=== PATIENT | female | born 1990 | race African-American/Black ===

== ENCOUNTER → 2018-10-07 | Outpatient (REF) | payer OTHER ==
[2018-10-07 13:26] LABS: APPEARANCE, URINE CLEAR (CLEAR); BACTERIA, URINE AUTO NEGATIVE (NEGATIVE); BILIRUBIN, URINE AUTO NEGATIVE (NEGATIVE); BLOOD, URINE BLOOD NEGATIVE (NEGATIVE); COLOR, URINE YELLOW (YELLOW); GLUCOSE, URINE (UA) AUTO NEGATIVE (NEGATIVE); KETONE, URINE AUTO NEGATIVE (NEGATIVE); LEUKOCYTE ESTERASE, URINE AUTO NEGATIVE (NEGATIVE); NITRITE, URINE AUTO NEGATIVE (NEGATIVE); PROTEIN, URINE AUTO NEGATIVE (NEGATIVE); RBC, URINE AUTO 0 /HPF (0-3); SPECIFIC GRAVITY URINE AUTO 1.023 (1.002-1.035); SQUAMOUS EPITHELIAL CELL UR AU 0 /HPF (0-6); WBC, URINE AUTO 0 /HPF (0-3)
== END ==
LOC: M LAB REF 12:23
PROVIDERS: ATTEND Surgery
DX: R10.9 Unspecified abdominal pain (principal); M54.5 Low back pain

== ENCOUNTER 2018-11-15 10:42 | Inpatient (IN) | payer OTHER ==
[~2018-11-15] VITALS: Ht 180.3 cm; Wt 98.6 kg
[2018-11-15] MEDS: ENOXAPARIN 40 MG/0.4 ML SYRINGE (J1650) SC SCH (09:00)
[2018-11-15] MEDS: hydroCHLOROthiazide 25 MG TAB PO SCH (09:00)
[2018-11-15] MEDS: ASPIRIN 81 MG ENTERIC TAB PO SCH (09:00)
[2018-11-15] MEDS: LOSARTAN 50 MG TAB PO SCH (09:00)
[2018-11-15] MEDS ORDERED: OMEP40CA2 PO (10:52)
[2018-11-15] MEDS ORDERED: ATOR40TA75 PO (10:52)
[2018-11-15] MEDS ORDERED: METF-839 PO (10:52)
[2018-11-15] MEDS ORDERED: LOSA100T50 PO (10:52)
[2018-11-15] MEDS ORDERED: ASPI81TA85 PO (10:52)
[2018-11-15] MEDS ORDERED: HYDR12.55 PO (10:52)
--- NOTE | 2018-11-15 11:34 | REP ---
Clinical: Acute cerebrovascular accident . Comparison: None of . Findings: The ventricles, sulci, and cisterns are normal in position and appearance. Orellana-white differentiation is maintained. No acute intracranial hemorrhage, mass/mass effect, pathology or trauma/injury. No evidence for acute infarction. No extra-axial fluid collection. Calvarium is intact. Paranasal sinuses and mastoid air cells are clear. Impression: No evidence for acute intracranial pathology or trauma/injury. Electronically Signed by Barry Peña MD 11/15/2018 11:26 A
--- NOTE | 2018-11-15 11:39 | REP ---
Clinical: Acute cerebrovascular accident . Comparison: None . Technique: PA. Findings: The mediastinum and cardiac silhouette are normal. The lung rose are clear and without acute consolidation, effusion, or pneumothorax. The skeletal structures are intact and normal. Impression: 1. No acute cardiopulmonary process. Electronically Signed by Barry Peña MD 11/15/2018 11:31 A
[2018-11-15 11:55] LABS: BASO % 0.8 % (0.0-1.0); EOS # 0.2 10^3/uL (0.0-0.50); EOS % 4.2 % (0.0-3.0); HEMATOCRIT 41.8 % (42.0-52.0); LYMPH # 1.6 10^3/uL (1.5-6.5); MEAN CORPUSCULAR HEMOGLOBIN 34.7 pg (27.0-33.0); MEAN CORPUSCULAR HGB CONC 35.9 g/dl (32.0-36.5); MEAN CORPUSCULAR VOLUME 96.8 fl (80.0-96.0); MONO # 0.3 10^3/uL (0.0-0.8); MONO % 8.8 % (0.0-5.0); NEUTROPHILS # 1.5 10^3/uL (1.8-7.7); NEUTROPHILS % 41.2 % (36.0-66.0); PLATELET COUNT, AUTOMATED 239 10^3/uL (150-450); RED BLOOD COUNT 4.32 10^6/uL (4.30-6.10); WHITE BLOOD COUNT 3.5 10^3/uL (4.0-10.0)
[2018-11-15 12:06] LABS: INR 1.1; PROTHROMBIN TIME 13.9 SECONDS (11.8-14.0)
[2018-11-15 12:07] LABS: PARTIAL THROMBOPLASTIN TIME 34.5 SECONDS (25.0-38.4)
[2018-11-15 12:24] LABS: BLOOD UREA NITROGEN 12 MG/DL (7-18); CALCIUM LEVEL 9.3 MG/DL (8.5-10.1); CARBON DIOXIDE LEVEL 26 MEQ/L (21-32); CHLORIDE LEVEL 108 MEQ/L (98-107); CK-MB VALUE MASS 1.6 NG/ML (<3.6); CPK CREATINE PHOSPHOKINASE 341 U/L (39-308); GLOMERULAR FILTRATION RATE > 60.0 (>60); GLUCOSE, FASTING 113 MG/DL (70-100); MB/CK RELATIVE INDEX 0.47 (< OR =4); SODIUM LEVEL 140 MEQ/L (136-145); TROPONIN I < 0.02 NG/ML (< 0.10)
[2018-11-15] MEDS ORDERED: KETOROLAC 30 MG/ML VIAL (J1885) IV ONE (12:30)
[2018-11-15] MEDS ORDERED: HYDR25TAB PO (13:46)
[2018-11-15] MEDS ORDERED: GLUCAGON FOR INJ 1 MG VIAL (J1610) SC PRN (14:00)
[2018-11-15] MEDS ORDERED: DEXTROSE 50% 50 ML SYRINGE IV PRN (14:00)
[2018-11-15] MEDS ORDERED: GLUCOSE 4 GM CHEW TABLET PO PRN (14:00)
--- NOTE | 2018-11-15 14:24 | HPEPDOC ---
General Date of Admission 11/15/2018 Date of Service: Nov 15, 2018 Attending Physician: FLOYD VEGAS MD Chief Complaint The patient is a 27-year-old male admitted with a reason for visit of Right Side Numbness. Source: Patient, RN/MD Exam Limitations: No limitations Timing/Duration: Day(s) Severity: Moderate History of Present Illness Patient is a 27-year-old male, currently incarcerated brought to the emergency room on account of two day onset right-sided weakness and numbness. Patient has a past medical history significant for hypertension, hyperlipidemia, type 2 diabetes mellitus, nicotine dependence. CT of brain completed in the emergency room was negative for acute intracranial process. Chest x-ray was negative for acute cardiopulmonary process. Patient describes pain as a sharp pain, initially starting from right lower back with radiation to neck and lower extremities. Pain is constant, rated 10 out of 10, worse with lumbar flexion, hip flexion, lumbar rotation, also unable to lie supine due to pain. Patient denies any trauma prior to onset of symptoms.. He also denies any prior occurrence of same.. He denies chest pain, shortness of breath, other weakness, chills, fever. A call was placed by the ED physician to neurology specialist, to Dr. Baez who recommended. MRI of cervical spine and brain. CT brain findings were discussed with patient at time of assessment. Home Medications Scheduled Aspirin (Aspir 81) 81 Mg Tablet.dr, 81 MG PO DAILY, (Reported) Atorvastatin Calcium (Atorvastatin Calcium) 40 Mg Tablet, 40 MG PO QHS, (Reported) Hydrochlorothiazide (Hydrochlorothiazide) 25 Mg Tablet, 25 MG PO DAILY, (Reported) Losartan Potassium (Losartan Potassium) 100 Mg Tablet, 100 MG PO DAILY, (Reported) Metformin HCl (Metformin HCl) 500 Mg Tablet, 500 MG PO BID, (Reported) Omeprazole (Omeprazole) 40 Mg Capsule.dr, 40 MG PO DAILY, (Reported) Allergies Coded Allergies: lisinopril (Verified Allergy, Severe, lips swelling, 11/15/18) Past Medical History Medical History Hypertension Diabetes mellitus type 2 Nicotine dependence Hyperlipidemia Surgical History Denies Family History Father: Hypertension, diabetes mellitus Mother: Hypertension Social History Patient smokes one to 2 cigarettes a day, denies alcohol or polysubstance abuse A-FIB/CHADSVASC A-FIB History Current/History of A-Fib/PAF?: No Current PO Anticoag Therapy: No Review of Systems Other systems A 10 point pertinent review of systems was completed, negative except as stated in the history of presenting illness. Physical Examination Other physical findings GENERAL: NAD SKIN : Warm, dry intact HEENT: Atraumatic, normocephalic, PERRL, moist mucous membrane CARDIOVASCULAR: Regular rate and rhythm, S1S2, no JVD, no edema, distal pulses + and palpable RESP: CTAB, no accessory muscle use noted ABDOMEN: BS+ non distended non tender MS: no joint deformities NEURO: Alert and oriented x 3, CN2-12 grossly intact PSYCH: no anxiety or agitation, appropriate mood and affect. Vital Signs Vital Signs Date Time Temp Pulse Resp B/P (MAP) Pulse Ox O2 Delivery O2 Flow Rate FiO2 11/15/18 11:05 Room Air 11/15/18 11:05 11/15/18 10:42 97.6 57 16 98 Laboratory Data Labs 24H Laboratory Tests 2 11/15/18 11:31: Immature Granulocyte % (Auto) 0.0, White Blood Count 3.5L, Red Blood Count 4.32, Hemoglobin 15.0, Hematocrit 41.8L, Mean Corpuscular Volume 96.8H, Mean Corpuscular Hemoglobin 34.7H, Mean Corpuscular Hemoglobin Concent 35.9, Red Cell Distribution Width 11.9, Platelet Count 239, Neutrophils (%) (Auto) 41.2, Lymphocytes (%) (Auto) 45.0H, Monocytes (%) (Auto) 8.8H, Eosinophils (%) (Auto) 4.2H, Basophils (%) (Auto) 0.8, Neutrophils # (Auto) 1.5L, Lymphocytes # (Auto) 1.6, Monocytes # (Auto) 0.3, Eosinophils # (Auto) 0.2, Basophils # (Auto) 0.0, Nucleated Red Blood Cells % (auto) 0.0, Prothrombin Time 13.9, Prothromb Time International Ratio 1.10, Activated Partial Thromboplast Time 34.5, Anion Gap 6L, Glomerular Filtration Rate > 60.0, Blood Urea Nitrogen 12, Creatinine 1.00, Sodium Level 140, Potassium Level 4.0, Chloride Level 108H, Carbon Dioxide Level 26, Calcium Level 9.3, Total Creatine Kinase 341H, Creatine Kinase MB 1.6, Cre atine Kinase MB Relative Index 0.47, Troponin I < 0.02 CBC/BMP Laboratory Tests 11/15/18 11:31 Red Blood Count 4.32, Mean Corpuscular Volume 96.8 H, Mean Corpuscular Hemoglobin 34.7 H, Mean Corpuscular Hemoglobin Concent 35.9, Red Cell Distribution Width 11.9, Neutrophils (%) (Auto) 41.2, Lymphocytes (%) (Auto) 45.0 H, Monocytes (%) (Auto) 8.8 H, Eosinophils (%) (Auto) 4.2 H, Basophils (%) (Auto) 0.8, Neutrophils # (Auto) 1.5 L, Lymphocytes # (Auto) 1.6, Monocytes # (Auto) 0.3, Eosinophils # (Auto) 0.2, Basophils # (Auto) 0.0, Calcium Level 9.3, Total Creatine Kinase 341 H Assessment/Plan Right-sided paresthesia and pain -CT brain has ruled out acute hemorrhagic intracranial process -MRI brain and cervical spine pending -. Case has been discussed with neurologist -Based on MRI findings, will be consulted for further input and recommendations -In the interim, continue CVA risk factor modifications. Blood pressure control, statin, aspirin Hypertension -Continue hydrochlorothiazide and losartan -Blood pressure monitoring per unit protocol Type 2 diabetes mellitus -Caloric controlled diabetic diet -Finger stick checks prior to meals and at bedtime -Coverage with insulin per sliding scale protocol -Hold in all oral glycemic agents at this time due to potential testings and risk of dye exposure Nicotine dependence -Cessation has been counseled Hyperlipidemia -Statin therapy will be continued DVT prophylaxis- -Lovenox subcutaneous 40 mg daily Plan / VTE VTE Prophylaxis Ordered?: Yes KADEN HELTON Nov 15, 2018 14:24
--- NOTE | 2018-11-15 15:11 | REP ---
MR angiography the brain without contrast: History: CVA. Technique: 3-D [id number] MR angiography of the brain is acquired in the usual fashion and maximal intensity projection images were generated in rotational format about the vertical and horizontal axes. In addition, source axial T1-weighted images are viewed in cine mode. MR angiographic findings: The distal vertebral arteries are patent , right larger than left . Basilar artery is a little tortuous but widely patent. The posterior cerebral and superior cerebellar vessels are normal and symmetric. The distal internal carotid arteries are unremarkable. Anterior and middle cerebral arteries appear intact. There is no visible boyd aneurysm or arteriovenous malformation. Impression: Unremarkable MR angiography the brain. Electronically Signed by Toby uHnter MD 11/15/2018 03:02 P
[2018-11-15 15:17] VITALS: BP 156/87
--- NOTE | 2018-11-15 15:17 | REP ---
MRI brain without contrast: History: CVA . Comparison study: Comparison is made with today's brain CT study November 15, 2018. Technique: Axial and sagittal imaging planes are utilized for T1 and T2-weighted scans. Sequences include spin-echo, fast spin echo, FLAIR, and diffusion weighted sequences. MRI findings: There is a small dural calcification visible in the right parietal region corresponding to the CT. This measures 1.1 cm in greatest diameter. Is attached to the inner table and is compatible with a small osteoma. Craniocervical junction and upper cervical cord are normal in appearance. There is no MR evidence of significant paranasal sinus disease. No intraorbital abnormality is seen. The lateral, third, and fourth ventricles are normal in size and position. Orellana-white differentiation pattern is intact above and below the tentorium. There is no evidence of intracranial hemorrhage. No mass, infarction, extra-axial fluid collection or midline shift is seen. No abnormal white matter lesion is seen. 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 Otherwise negative noncontrast brain MRI study. Electronically Signed by Toby Hunter MD 11/15/2018 04:22 P
--- NOTE | 2018-11-15 15:20 | REP ---
MRI cervical spine without contrast: History: Neck pain. No comparison cervical spine imaging. Technique: Sagittal and axial T1 and T2-weighted scans are acquired in the usual fashion with and without fat saturation. Sequences include spin echo, turbo spin-echo, and STIR imaging sequences. MRI findings: There is straightening and slight reversal of the normal cervical lordosis. Cortical and medullary bone signal intensity are normal. Vertebral body heights are preserved. Alignment is otherwise normal. Craniocervical junction is unremarkable. The cervical cord is normal in coarse, caliber and signal intensity on T1 and T2-weighted scans. There is mild central disc bulging at C2-3. No other finding at this level. At C3-4, there is a left posterior focal disc protrusion indenting the ventral margin of the thecal sac. On axial images this appears to contact the ventral margin of the cord. There is no evidence of cord compression. No neural foraminal compromise is seen. At C4-5, there is mild broad-based disc bulging. There is uncovertebral spurring on the right encroaching on the right neural foramen. At C5-6, there is disc space narrowing and posterior bulging. Minimal uncovertebral spurring is present bilaterally at C5-6. At C6-7 and C7-T1, there is no disc abnormality. Canal size is borderline at C4-5 and C5-6. AP diameter of the thecal sac in the midline at these levels is 10 mm. Impression: Degenerative disc disease noted with a left posterior disc protrusion at C3-4, right-sided uncovertebral spurring at C4-5, mild bilateral uncovertebral spurring at C5-6 with diffuse disc bulging. Borderline canal size at C4-5 and C5-6. Electronically Signed by Toby Hunter MD 11/15/2018 04:23 P
--- NOTE | 2018-11-15 15:41 | ECGEPIP ---
[facility] - ED Test Date: 2018-11-15 Pat Name: KESHIA HAND Department: Room: - Gender: Male Mask Inspector: abiel : [id number] Requested By: MICHAEL Naranjo Order Number: [id number] Reading MD: Griselda Mcleod Measurements Intervals [place] Rate: 53 P: 49 OK: 167 QRS: 3 QRSD: 89 T: QT: 407 QTc: 385 Interpretive Statements SINUS BRADYCARDIA MODERATE T-WAVE ABNORMALITY, CONSIDER ANTEROLATERAL ISCHEMIA, CLINICAL CORRELATION No prior Electronically Signed on 11-15-2018 15:40:52 EDT by Griselda Mcleod
[2018-11-15] MEDS: ACETAMINOPHEN TAB 650MG DOSE (2X325MG) PO PRN (17:47)
[2018-11-15] MEDS: HumaLOG INSULIN (NovoLOG) PER UNIT SC SCH ×2 (17:48→20:35)
[2018-11-15 18:00] VITALS: BP 143/96
[2018-11-15] MEDS: ATORVASTATIN 20 MG TAB PO SCH (21:06)
[2018-11-15 22:00] VITALS: BP 147/85
[2018-11-15] MEDS ORDERED: GABAPENTIN 100 MG CAP PO ONE (23:15)
[2018-11-16 02:00] VITALS: BP 149/68
[2018-11-16 06:00] VITALS: BP 148/71
[2018-11-16 06:38] LABS: HEMATOCRIT 41.3 % (42.0-52.0); HEMOGLOBIN 14.6 g/dl (13.5-17.5); MEAN CORPUSCULAR HEMOGLOBIN 33.3 pg (27.0-33.0); MEAN CORPUSCULAR HGB CONC 35.4 g/dl (32.0-36.5); MEAN CORPUSCULAR VOLUME 94.1 fl (80.0-96.0); PLATELET COUNT, AUTOMATED 232 10^3/uL (150-450); RED BLOOD COUNT 4.39 10^6/uL (4.30-6.10); WHITE BLOOD COUNT 5.2 10^3/uL (4.0-10.0)
[2018-11-16 07:09] LABS: BLOOD UREA NITROGEN 16 MG/DL (7-18); CALCIUM LEVEL 8.9 MG/DL (8.5-10.1); CARBON DIOXIDE LEVEL 26 MEQ/L (21-32); CHLORIDE LEVEL 106 MEQ/L (98-107); CREATININE FOR GFR 0.97 MG/DL (0.70-1.30); GLOMERULAR FILTRATION RATE > 60.0 (>60); GLUCOSE, FASTING 121 MG/DL (70-100); MAGNESIUM LEVEL 2.2 MG/DL (1.8-2.4); POTASSIUM SERUM 3.7 MEQ/L (3.5-5.1); SODIUM LEVEL 139 MEQ/L (136-145); THYROID STIMULATING HORMONE 0.334 uIU/ML (0.358-3.740)
--- NOTE | 2018-11-16 07:31 | REP ---
Clinical: Right lower extremity pain . Technique: Orellana scale and color Doppler evaluation using linear high frequency transducer. Findings: Ultrasound examination of the right lower extremity deep venous structures from the common femoral vein to the popliteal vein demonstrates normal compressibility flow and wave patterns in response to respiration and augmentation. There is no evidence for deep venous thrombosis. Impression: No evidence for deep venous thrombosis. Electronically Signed by Barry Peña MD 11/16/2018 07:23 A
[2018-11-16] MEDS: ENOXAPARIN 40 MG/0.4 ML SYRINGE (J1650) SC SCH (08:23)
[2018-11-16] MEDS: LOSARTAN 50 MG TAB PO SCH (08:23)
[2018-11-16] MEDS: hydroCHLOROthiazide 25 MG TAB PO SCH (08:23)
[2018-11-16] MEDS: ASPIRIN 81 MG ENTERIC TAB PO SCH (08:23)
[2018-11-16] MEDS: HumaLOG INSULIN (NovoLOG) PER UNIT SC SCH ×4 (08:24→21:00)
[2018-11-16] MEDS ORDERED: GABAPENTIN 100 MG CAP PO SCH (09:00)
--- NOTE | 2018-11-16 12:22 | REP ---
MRI LUMBAR SPINE WITHOUT CONTRAST: HISTORY: Back pain. Left calf numbness. No known injury. TECHNIQUE: Sagittal and axial T1- and T2-weighted scans are acquired in the usual fashion with and without fat saturation. Sequences include spin echo, turbo spin echo, and STIR imaging sequences. MRI FINDINGS: There is partial sacralization of the L5 vertebral body. Vertebral body heights are preserved. Alignment is normal. Cortical and medullary bone signal intensity are normal. There is a Schmorl's node in the superior endplate of the L5 vertebral body on the right. There is degenerative disc disease at L4-5. There is a large right posterior focal disc protrusion producing moderate thecal sac compression and right fifth lumbar root compression. There is diffuse moderate bulging of the remainder of the disc margin. The left neural foramen shows a encroachment as well. There is no evidence of spondylolysis or spondylolisthesis. Mild facet hypertrophy is present. Thecal sac measures 6 mm AP dimension in the midline. At L5-S1, there is no disc abnormality. At L3-4, L2-3, and L1-L2, there is no significant disc abnormality. No central canal stenosis or neural foraminal narrowing is seen. Conus medullaris is normal in position and appearance at the T12-L1. IMPRESSION: Moderate sized right posterior L4-5 disc herniation with a moderate thecal sac compression. Bilateral neural foraminal narrowing at L4-5. Facet hypertrophy is present of L4-5 as well. There is partial sacralization of the L5 vertebral body. Electronically Signed by Toby Hunter MD 11/16/2018 04:33 P
[2018-11-16] MEDS: ACETAMINOPHEN TAB 650MG DOSE (2X325MG) PO PRN (12:29)
--- NOTE | 2018-11-16 13:04 | IPNPDOC ---
Text Note Date of Service The patient was seen on 11/16/18. NOTE Subjective: Patient is a 27-year-old -[place] male from [place] with a PMHx of HTN, DLP, DM2, Nicotine dependence , presented to the emergency room with complaints of 2 day history of right-sided weakness and numbness of his right side. It is unclear whether the patient had complete weakness of his right upper and lower extremities based on documentation. Currently, patient is expressing weakness of his right lower extremity associated with loss of sensation. Patient denies any trauma. He reports that it occurred spontaneously. Patient was seen and examined at the bedside. Currently, he denies chest pain, shortness of breath or palpitations. Denies nausea, vomiting, abdominal pain. Patient, diarrhea, or urinary discomfort. Patient does not experience any bowel or bladder incontinence. Objective: Vitals (See below) General: Lying in bed, no acute distress, comfortable, AAOx3 HEENT: NC, AT CVS: RRR, +S1S2 Lungs: Fair air entry b/l, -w/r/r Abdomen: Soft, ND, NT Extremities: - Edema, - Calf tenderness Neuro: 3-4/5 strength at RLE, LLE with 5/5 strength, Bilateral UE with 5/5 strength Imaging: - CT head 11/15: No evidence for acute intracranial pathology or trauma/injury. - CXR 11/15: 1. No acute cardiopulmonary process. - MRI C Spine 11/15: Degenerative disc disease noted with a left posterior disc protrusion at C3-4, right-sided uncovertebral spurring at C4-5, mild bilateral uncovertebral spurring at C5-6 with diffuse disc bulging. Borderline canal size at C4-5 and C5-6. 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 Otherwise negative noncontrast brain MRI study. - MRA Brain 11/15: Unremarkable MR angiography the brain. - Duplex Carotid US 11/15: No evidence for deep venous thrombosis. - MRI LS Spine 11/16: Moderate sized right posterior L4-5 disc herniation with a moderate thecal sac compression. Bilateral neural foraminal narrowing at L4-5. Facet hypertrophy is present of L4-5 as well. There is partial sacralization of the L5 vertebral body. Assessment and plan: Weakness / Numbness of R LE - possibly 2/2 herniated disc, unlikely 2/2 CVA - Patient denies any trauma - Imaging appreciated; documented above - c/w Gabapentin - Neurology and Orthopedic surgery on consultation; appreciate their input Suppressed TSH - possibly 2/2 hyperthyroidism - Will repeat TSH, Free T4 and Total T3 HTN - BP moderately controlled - c/w Losartan and HCTZ DM2 - c/w ISS DLP - c/w Atorvastatin Nicotine dependence - Advised smoking cessation - c/w Nicotine patch GERD - will resume Omeprazole DVT prophylaxis - c/w Lovenox VS,Fishbone, I+O VS, Fishbone, I+O Laboratory Tests 11/16/18 05:22 Red Blood Count 4.39, Mean Corpuscular Volume 94.1, Mean Corpuscular Hemoglobin 33.3 H, Mean Corpuscular Hemoglobin Concent 35.4, Red Cell Distribution Width 11.8, Calcium Level 8.9 Vital Signs Date Time Temp Pulse Resp B/P (MAP) Pulse Ox O2 Delivery O2 Flow Rate FiO2 11/16/18 10:00 97.9 62 18 98 11/16/18 08:23 148/71 11/15/18 11:05 Room Air I&O- Last 24 Hours up to 6 AM 11/16/18 06:00 Intake Total 1260 ml Output Total 400 ml Balance 860 ml MYRA KENDALL MD Nov 16, 2018 13:04
[2018-11-16 14:00] VITALS: BP 140/89
[2018-11-16] MEDS: traMADol 50 MG TAB PO PRN (14:04)
[2018-11-16] MEDS: OMEPRAZOLE 20 MG CAP PO SCH (14:04)
--- NOTE | 2018-11-16 14:44 | REP ---
Clinical: Lumbar pain Technique: AP, lateral, bilateral oblique, and coned-down views. Findings: Alignment and lordosis is maintained. There appears to be partial sacralization of the L5 vertebral body with associated loss of disc space. The remaining vertebral bodies including transverse process and spinous processes are intact and normal. There is no evidence for acute fracture / compression injury or subluxation. No evidence for spondylolysis or spondylolisthesis. Impression: Partial sacralization of the L5 vertebral body. Otherwise normal appearing lumbar series. Electronically Signed by Barry Peña MD 11/16/2018 02:35 P
--- NOTE | 2018-11-16 14:58 | CR ---
DATE OF CONSULTATION: 11/16/2018 REASON FOR CONSULTATION: Right back pain and right leg pain. HISTORY OF PRESENT ILLNESS: He is a 27-year-old male who has had three weeks of low back pain and then yesterday he got up out of bed in the morning, described he had a searing, burning pain down the right leg emanating from the right side of his low. Associated with this it was difficult to walk, he complained that his leg felt weak to him and buckling, so he presented to the emergency room where he was admitted by the hospitalist service and multiple radiographic studies have been performed and most recently a lumbosacral spine MR scan shows a large herniated disc at L4-5. He has not been having troubles with his bowel or bladder function. He is requiring a walker to ambulate. He does not complain of pain in his upper extremities, only tingling and numbness down the right leg, not the left leg. PAST MEDICAL HISTORY: He has a past medical history of high blood pressure, hypercholesterolemia, and [id number]-atrysycna diabetes, and gastric reflux. MEDICATIONS: His medications are aspirin, atorvastatin, hydrochlorothiazide, losartan, metformin and omeprazole. ALLERGIES: 1. LISINOPRIL. PAST SURGICAL HISTORY: None. SOCIAL HISTORY: He is presently incarcerated up at [facility]. He is here with two guards. He does smoke cigarettes. He does not drink alcohol excessively. FAMILY HISTORY: He has a family history of high blood pressure and diabetes in his family. He is from the [facility] originally. PHYSICAL EXAMINATION: On clinical examination, 27-year-old male lying in his bed. He is able to roll supine and on his side for me, but with quite a bit of discomfort and grimacing in pain. His blood pressure was 148/71, temperature 97.9, pulse 62, respirations 18, oxygen saturation 98%. Upper extremity examinations were benign. He could elevate up overhead. He had no complaints of sores or pains or troubles involving his upper extremities. The lumbar spine was tender diffusely across the base of the lumbar spine then off into the right buttock area. He had decreased sensation to light touch when I palpate down along the lateral aspect of the lower leg. It was intact over the anterior quadriceps area and along the medial side of his leg but clearly the lateral side of the lower leg was numb and tingly, extending down to the dorsum of the right foot and he had some numbness on the bottom of his foot. There was some slight weakness when he tries to marcio and dorsiflex that right ankle, negative Babinski, but reflexes seem to be diminished at the right quad versus the left quad, but it seemed to be intact at both ankles. No clonus was noted. He could do a straight-leg raise, but it was very painful if I elevated his leg up with his knee extending, more than about 30 degrees off the bed. It did not cause that trouble when I elevated the left leg. His imaging studies were all reviewed including head CT, chest x-ray, which showed no acute troubles. Cervical spine MRI scan had some diffuse cervical spondylosis with some left posterior focal disc protrusion at 3-4, more broad based at 4-5 and some narrowing at 5-6 with some spurring of the uncovertebral joints. There is some borderline narrowing across 4-5 and 5-6. The brain MRI and vascular ultrasounds were unremarkable. Lumbar spine MRI scan showed a sizable L4-5 disc off to the right side, quite concordant with his symptoms. IMPRESSION: Acute herniated L4-5 disc with some weakness in his leg and tingling and numbness, quite a bit of pain, obvious quite a bit of discomfort. He may be a candidate for surgical disc excision. Other options would be epidural steroid injections and physical therapy. He needs plain film x-rays of his back in case a surgery is decided upon. I told him that I did discuss this case with my partner, my spine surgeon, Dr. Hill, who will be evaluating him to discuss the options once again with him and in the meantime we will order the spine film x-rays.
[2018-11-16 18:00] VITALS: BP 130/76
[2018-11-16 18:01] LABS: FREE T4 0.94 NG/DL (0.76-1.46); THYROID STIMULATING HORMONE 0.616 uIU/ML (0.358-3.740)
[2018-11-16 18:03] LABS: TOTAL T3 91.1 NG/DL (60.0-181.0)
[2018-11-16] MEDS: GABAPENTIN 300 MG CAP PO SCH (21:18)
[2018-11-16] MEDS: ATORVASTATIN 20 MG TAB PO SCH (21:18)
[2018-11-16 22:00] VITALS: BP 146/88
[2018-11-17 06:00] VITALS: BP 138/76
[2018-11-17 06:22] LABS: HEMATOCRIT 44.4 % (42.0-52.0); HEMOGLOBIN 15.9 g/dl (13.5-17.5); MEAN CORPUSCULAR HEMOGLOBIN 34.3 pg (27.0-33.0); MEAN CORPUSCULAR HGB CONC 35.8 g/dl (32.0-36.5); MEAN CORPUSCULAR VOLUME 95.7 fl (80.0-96.0); PLATELET COUNT, AUTOMATED 232 10^3/uL (150-450); RED BLOOD COUNT 4.64 10^6/uL (4.30-6.10)
[2018-11-17 06:45] LABS: BLOOD UREA NITROGEN 15 MG/DL (7-18); CALCIUM LEVEL 9.1 MG/DL (8.5-10.1); CARBON DIOXIDE LEVEL 27 MEQ/L (21-32); CHLORIDE LEVEL 103 MEQ/L (98-107); CREATININE FOR GFR 0.98 MG/DL (0.70-1.30); GLOMERULAR FILTRATION RATE > 60.0 (>60); GLUCOSE, FASTING 104 MG/DL (70-100); MAGNESIUM LEVEL 2.1 MG/DL (1.8-2.4); POTASSIUM SERUM 3.6 MEQ/L (3.5-5.1); SODIUM LEVEL 138 MEQ/L (136-145)
--- NOTE | 2018-11-17 06:49 | CR ---
DATE OF CONSULTATION: 11/16/2018 REFERRING PHYSICIAN: Dr. Marv Kelsey REASON FOR CONSULTATION: Right leg numbness, weakness and back pain. HISTORY OF PRESENT ILLNESS: Beverly Niño is a 27-year-old male who is incarcerated and states that he had off and back pain for the last one year, but it got worse this past weekend on Wednesday. His pain got worse to 10 out of 10 in intensity and was radiating down his right leg and he felt numbness and tingling of right leg below his right anne and top of his foot. He also felt weakness of his left foot. He would feel more pain in his back whenever he was bending his neck. He also felt more pain in his lower back if he raised his arms up. He denies any pain with his left leg. He denies any numbness, weakness of his arms. He denies any headaches. He denies seizures, dysphagia, dysarthria, diplopia or urinary incontinence. DIAGNOSTICS STUDIES: His MRI scan of brain was unremarkable. MRA brain was unremarkable. MRI cervical spine showed mild multilevel cervical spondylosis. MRI scan lumbar spine showed disc herniation at L4-L5 level with right foraminal stenosis and severe compression of right L3 nerve root. PAST MEDICAL HISTORY: Diabetes. Hypertension. Dyslipidemia. Acid reflux. Nicotine dependence. HOME MEDICATIONS: - aspirin 81 mg p.o. daily - Lipitor 40 mg p.o. daily - hydrochlorothiazide 25 mg in morning - losartan 100 mg p.o. daily - metformin 500 mg p.o. b.i.d. - Prilosec 40 mg p.o. daily FAMILY HISTORY: Significant for diabetes and hypertension. SOCIAL HISTORY: He smokes a couple of cigarettes a day. He denies alcohol or illicit drugs. REVIEW OF SYSTEMS: All systems are reviewed and found to be noncontributory except as mentioned in the history present illness. PHYSICAL EXAMINATION: Temperature 97, pulse 59, respiratory rate 16, blood pressure 140/89, 99% saturation on room air. Heart: Regular rate and rhythm. Lungs: Clear to auscultation. Abdomen: Soft, nontender, nondistended. No pedal edema. No musculoskeletal abnormalities. No rash. No signs of meningeal irritation. The patient is awake, alert, oriented to place, person and time. Normal speech comprehension and repetition. Extraocular muscles are intact. No facial weakness. Tongue and uvula are midline. Strength in his right big toe dorsiflexion is 4+/5 and right foot dorsiflexion is 4+/5. Rest of the strength is 5/5. Deep tendon flexes 1+ at the right knee and right ankle, and the rest of the deep tendon flexes are 2+ throughout. He has decreased cold touch and vibration sensation on dorsum of his right foot and anne. Gait is unsteady due to pain and antalgic. ASSESSMENT: 1. Large L4-5 disc herniation with compression of right L5 nerve root and foramen. 2. Back pain, right leg numbness, tingling, weakness related to above. 3. Mild cervical spondylosis. PLAN: 1. Consult spine surgery as they may recommend lumbosacral laminectomy and discectomy. 2. Increase gabapentin to 600 mg p.o. b.i.d. 3. Physical and occupational therapy. 4. Tramadol 50 mg p.o. t.i.d. p.r.n.
[2018-11-17] MEDS: OMEPRAZOLE 20 MG CAP PO SCH (08:05)
[2018-11-17] MEDS: GABAPENTIN 300 MG CAP PO SCH ×2 (08:05→20:21)
[2018-11-17] MEDS: ASPIRIN 81 MG ENTERIC TAB PO SCH (08:05)
[2018-11-17] MEDS: LOSARTAN 50 MG TAB PO SCH (08:05)
[2018-11-17] MEDS: ENOXAPARIN 40 MG/0.4 ML SYRINGE (J1650) SC SCH (08:06)
[2018-11-17] MEDS: traMADol 50 MG TAB PO PRN (08:06)
[2018-11-17] MEDS: hydroCHLOROthiazide 25 MG TAB PO SCH (08:06)
[2018-11-17] MEDS: HumaLOG INSULIN (NovoLOG) PER UNIT SC SCH ×4 (08:07→21:00)
[2018-11-17 10:00] VITALS: BP 127/82
--- NOTE | 2018-11-17 13:31 | IPNPDOC ---
Subjective Date Seen The patient was seen on 11/17/18. Subjective Chief Complaint/HPI Patient seen and examined at the bedside. Reports continued back pain and right lower extremity pain/numbness tingling. Denies any urinary/fecal incontinence, or saddle anesthesia. Objective Physical Examination General Exam: Positive: Alert, Cooperative, No Acute Distress ENT Exam: Positive: Atraumatic, Mucous membr. moist/pink Neck Exam: Negative: JVD Chest Exam: Positive: Clear to auscultation, Normal air movement Heart Exam: Positive: Rate Normal, Normal S1, Normal S2 Abdomen Exam: Positive: Soft; Negative: Tenderness Extremity Exam: Negative: Tenderness, Swelling Neuro Exam: Positive: Other (RLE with limited ROM 2/2 back Pain. However patient is able to bend the right knee and wiggle toes. Reports burning sciatic type of pain in the back of the upper leg/hamstring area. Notes some numbness across right anne/foot area) Psych Exam: Positive: Oriented x 3 Assessment /Plan Plan/VTE VTE Prophylaxis Ordered?: Yes Plan Weakness / Numbness of Right LE 2/2 herniated disc Patient denies any trauma MRI LS notable for moderate size right posterior L4-5 disc herniation with moderate thecal sac compression, partial sacralization of the L5 vertebral body. XR of the LS notable for partial sacralization of L5 vertebral body Patient without any signs or symptoms of cauda equina Cont Gabapentin, Tramadol for Pain Neurology input appreciated Orthopedic surgery on consult--will follow up with their recommendations on medical treatment/PT vs surgical options HTN Cont Losartan and HCTZ DM2 ISS DLP Atorvastatin Nicotine dependence Advised smoking cessation Nicotine patch GERD Omeprazole DVT prophylaxis Lovenox Dispo--pending clinical improvement. VS, I&O, 24H, Fishbone Vital Signs/I&O Vital Signs Date Time Temp Pulse Resp B/P (MAP) Pulse Ox O2 Delivery O2 Flow Rate FiO2 11/17/18 10:00 97.0 59 18 127/82 (97) 100 11/15/18 11:05 Room Air I&O- Last 24 Hours up to 6 AM 11/17/18 06:00 Intake Total 2130 ml Output Total 325 ml Balance 1805 ml Laboratory Data 24H LABS Laboratory Tests 2 11/16/18 16:49: Bedside Glucose (Misc Panel) 115H 11/16/18 17:19: Thyroid Stimulating Hormone (TSH) 0.616, Free Thyroxine 0.94, Total Triiodothyronine 91.1 11/16/18 20:45: Bedside Glucose (Misc Panel) 112H 11/17/18 05:27: Nucleated Red Blood Cells % (auto) 0.0, Anion Gap 8, Glomerular Filtration Rate > 60.0, Blood Urea Nitrogen 15, Creatinine 0.98, Sodium Level 138, Potassium Level 3.6, Chloride Level 103, Carbon Dioxide Level 27, Calcium Level 9.1, Magnesium Level 2.1 11/17/18 11:35: Bedside Glucose (Misc Panel) 153H CBC/BMP Laboratory Tests 11/17/18 05:27 Red Blood Count 4.64, Mean Corpuscular Volume 95.7, Mean Corpuscular Hemoglobin 34.3 H, Mean Corpuscular Hemoglobin Concent 35.8, Red Cell Distribution Width 11.7, Calcium Level 9.1 MOHAN VARELA MD Nov 17, 2018 13:31
[2018-11-17 14:00] VITALS: BP 119/82
[2018-11-17 18:00] VITALS: BP 126/79
[2018-11-17] MEDS: ATORVASTATIN 20 MG TAB PO SCH (20:21)
[2018-11-17 22:00] VITALS: BP 151/75
[2018-11-18] VITALS (7 sets, daily range): BP systolic 128–164; BP diastolic 45–80
[2018-11-18] MEDS: traMADol 50 MG TAB PO PRN ×2 (05:54→19:27)
[2018-11-18 06:30] LABS: HEMOGLOBIN 16.9 g/dl (13.5-17.5); MEAN CORPUSCULAR HEMOGLOBIN 34.3 pg (27.0-33.0); MEAN CORPUSCULAR VOLUME 95.5 fl (80.0-96.0); PLATELET COUNT, AUTOMATED 237 10^3/uL (150-450); RED BLOOD COUNT 4.92 10^6/uL (4.30-6.10); WHITE BLOOD COUNT 4.7 10^3/uL (4.0-10.0)
[2018-11-18 06:49] LABS: BLOOD UREA NITROGEN 15 MG/DL (7-18); CALCIUM LEVEL 8.8 MG/DL (8.5-10.1); CARBON DIOXIDE LEVEL 27 MEQ/L (21-32); CHLORIDE LEVEL 104 MEQ/L (98-107); GLOMERULAR FILTRATION RATE > 60.0 (>60); GLUCOSE, FASTING 119 MG/DL (70-100); MAGNESIUM LEVEL 2.1 MG/DL (1.8-2.4); POTASSIUM SERUM 3.7 MEQ/L (3.5-5.1); SODIUM LEVEL 140 MEQ/L (136-145)
[2018-11-18] MEDS: OMEPRAZOLE 20 MG CAP PO SCH (07:57)
[2018-11-18] MEDS: HumaLOG INSULIN (NovoLOG) PER UNIT SC SCH ×4 (07:57→20:51)
[2018-11-18] MEDS: GABAPENTIN 300 MG CAP PO SCH ×2 (07:57→20:01)
[2018-11-18] MEDS: LOSARTAN 50 MG TAB PO SCH (07:58)
[2018-11-18] MEDS: ASPIRIN 81 MG ENTERIC TAB PO SCH (07:58)
[2018-11-18] MEDS: hydroCHLOROthiazide 25 MG TAB PO SCH (07:58)
[2018-11-18] MEDS: ENOXAPARIN 40 MG/0.4 ML SYRINGE (J1650) SC SCH (07:59)
--- NOTE | 2018-11-18 11:22 | IPNPDOC ---
Subjective Date Seen The patient was seen on 11/18/18. Subjective Chief Complaint/HPI Patient seen and examined at the bedside. States that his lower back pain is controlled at this time. However, continues to notice shooting pain in the back of his right leg, and numbness/tingling in the lower part of the extremity. Otherwise, denies any other acute complaints. Objective Physical Examination General Exam: Positive: Alert, Cooperative, No Acute Distress ENT Exam: Positive: Atraumatic, Mucous membr. moist/pink Neck Exam: Negative: JVD Chest Exam: Positive: Clear to auscultation, Normal air movement Heart Exam: Positive: Rate Normal, Normal S1, Normal S2 Abdomen Exam: Positive: Soft; Negative: Tenderness Extremity Exam: Negative: Tenderness, Swelling Neuro Exam: Positive: Other (RLE with limited ROM 2/2 back Pain. However patient is able to bend the right knee and wiggle toes. Reports burning sciatic type of pain in the back of the upper leg/hamstring area. Notes some numbness across right anne/foot area) Psych Exam: Positive: Oriented x 3 Assessment /Plan Plan/VTE VTE Prophylaxis Ordered?: Yes Plan Weakness / Numbness of Right LE 2/2 herniated disc Patient denies any trauma MRI LS notable for moderate size right posterior L4-5 disc herniation with moderate thecal sac compression, partial sacralization of the L5 vertebral body. XR of the LS notable for partial sacralization of L5 vertebral body Patient without any signs or symptoms of cauda equina Cont Gabapentin, Tramadol for Pain Neurology input appreciated Orthopedic surgery on consult--patient scheduled for surgical intervention HTN Cont Losartan and HCTZ DM2 ISS DLP Atorvastatin Nicotine dependence Advised smoking cessation Nicotine patch GERD Omeprazole DVT prophylaxis Lovenox Dispo--pending clinical improvement. VS, I&O, 24H, Fishbone Vital Signs/I&O Vital Signs Date Time Temp Pulse Resp B/P (MAP) Pulse Ox O2 Delivery O2 Flow Rate FiO2 11/18/18 10:00 98.2 75 16 160/80 (106) 99 11/18/18 02:00 11/15/18 11:05 Room Air I&O- Last 24 Hours up to 6 AM 11/18/18 06:00 Intake Total 1950 ml Output Total 2350 ml Balance -400 ml Laboratory Data 24H LABS Laboratory Tests 2 11/17/18 11:35: Bedside Glucose (Misc Panel) 153H 11/17/18 16:37: Bedside Glucose (Misc Panel) 146H 11/17/18 20:03: Bedside Glucose (Misc Panel) 115H 11/18/18 05:25: Nucleated Red Blood Cells % (auto) 0.0, Anion Gap 9, Glomerular Filtration Rate > 60.0, Blood Urea Nitrogen 15, Creatinine 1.10, Sodium Level 140, Potassium Level 3.7, Chloride Level 104, Carbon Dioxide Level 27, Calcium Level 8.8, Magnesium Level 2.1 CBC/BMP Laboratory Tests 11/18/18 05:25 Red Blood Count 4.92, Mean Corpuscular Volume 95.5, Mean Corpuscular Hemoglobin 34.3 H, Mean Corpuscular Hemoglobin Concent 36.0, Red Cell Distribution Width 11.8, Calcium Level 8.8 MOHAN VARELA MD Nov 18, 2018 11:22
[2018-11-18] MEDS: ATORVASTATIN 20 MG TAB PO SCH (20:01)
[2018-11-19] VITALS (10 sets, daily range): BP systolic 113–158; BP diastolic 63–83; O2SAT 97
[2018-11-19 06:14] LABS: HEMATOCRIT 45.4 % (42.0-52.0); HEMOGLOBIN 16.2 g/dl (13.5-17.5); MEAN CORPUSCULAR HEMOGLOBIN 34.2 pg (27.0-33.0); MEAN CORPUSCULAR HGB CONC 35.7 g/dl (32.0-36.5); PLATELET COUNT, AUTOMATED 241 10^3/uL (150-450); RED BLOOD COUNT 4.73 10^6/uL (4.30-6.10)
[2018-11-19 06:47] LABS: BLOOD UREA NITROGEN 16 MG/DL (7-18); CALCIUM LEVEL 8.6 MG/DL (8.5-10.1); CARBON DIOXIDE LEVEL 26 MEQ/L (21-32); CHLORIDE LEVEL 104 MEQ/L (98-107); GLOMERULAR FILTRATION RATE > 60.0 (>60); GLUCOSE, FASTING 169 MG/DL (70-100); POTASSIUM SERUM 3.5 MEQ/L (3.5-5.1); SODIUM LEVEL 138 MEQ/L (136-145)
[2018-11-19] MEDS: LOSARTAN 50 MG TAB PO SCH (07:57)
[2018-11-19] MEDS: hydroCHLOROthiazide 25 MG TAB PO SCH (07:57)
[2018-11-19] MEDS: GABAPENTIN 300 MG CAP PO SCH ×2 (07:57→20:36)
[2018-11-19] MEDS: OMEPRAZOLE 20 MG CAP PO SCH (07:58)
[2018-11-19] MEDS: HumaLOG INSULIN (NovoLOG) PER UNIT SC SCH ×4 (07:58→20:35)
[2018-11-19] MEDS ORDERED: BUPIVACAINE/EPIN 0.25% 30 ML VIAL As Ordered ONE (08:20)
[2018-11-19] MEDS ORDERED: THROMBIN SOLN 20,000 UNITS KIT As Ordered ONE (08:20)
[2018-11-19] MEDS ORDERED: BACITRACIN PWD 50,000 UNITS VIAL As Ordered ONE (08:21)
[2018-11-19] MEDS ORDERED: ceFAZolin 1GM INJ (J0690 PER 500MG) As Ordered ONE (08:38)
[2018-11-19] MEDS ORDERED: ceFAZolin 2 GM/D5W 50 ML IV BAG (J0690 PER 500MG) As Ordered ONE (08:48)
[2018-11-19] MEDS ORDERED: dexameTHASONE 4 MG/ML 1ML VIAL (J1100) As Ordered ONE (09:42)
[2018-11-19] MEDS ORDERED: GLYCOPYRROLATE INJ 0.2 MG/ML 2 ML VIAL As Ordered ONE (09:42)
[2018-11-19] MEDS ORDERED: VASOPRESSIN INJ 20 UNITS/ML VIAL As Ordered ONE (09:42)
[2018-11-19] MEDS ORDERED: MIDAZOLAM INJ 2 MG/2 ML VIAL (J2250) As Ordered ONE (09:42)
[2018-11-19] MEDS ORDERED: SUGAMMADEX SODIUM 500 MG/5 ML VIAL (BRIDION) As Ordered ONE (09:42)
[2018-11-19] MEDS ORDERED: ROCURONIUM BROMIDE 50 MG/5 ML VIAL As Ordered ONE ×2 (09:42→09:43)
[2018-11-19] MEDS ORDERED: LIDOCAINE 2% INJ 100 MG/5 ML SDV (FOR ANES.) As Ordered ONE (09:42)
[2018-11-19] MEDS ORDERED: PROPOFOL 200 MG/20 ML VIAL As Ordered ONE (09:42)
[2018-11-19] MEDS ORDERED: ONDANSETRON 4MG/2ML VIAL (J2405) As Ordered ONE (09:42)
[2018-11-19] MEDS ORDERED: fentaNYL 250 MCG/5 ML INJECTION (J3010) As Ordered ONE (09:42)
[2018-11-19] MEDS ORDERED: PHENYLEPHRINE INJ 10MG/ML VIAL (J2370) As Ordered ONE (10:07)
[2018-11-19] MEDS ORDERED: ACETAMINOPHEN 1000MG 100ML IV BTL (OFIRMEV) (J0131 PER 10MG) As Ordered ONE (10:31)
[2018-11-19] MEDS ORDERED: ePHEDrine SULFATE 25 MG/5 ML(5MG/ML) SYRINGE As Ordered ONE (10:41)
[2018-11-19] MEDS ORDERED: PHENYLephrine HCL 500 MCG/5 ML (100MCG/ML) SYRINGE (J2370) As Ordered ONE (10:42)
[2018-11-19] MEDS ORDERED: HYDROMORPHONE HCL 0.5 MG/ 0.5 ML SYRINGE (J1170 PER 1) As Ordered ONE (11:49)
[2018-11-19] MEDS ORDERED: oxyCODONE 5MG TAB As Ordered ONE (11:53)
[2018-11-19] MEDS ORDERED: ONDANSETRON 4MG/2ML VIAL (J2405) IV PRN ×2 (12:15→18:00)
[2018-11-19] MEDS ORDERED: oxyCODONE 5MG TAB PO PRN (12:15)
[2018-11-19] MEDS ORDERED: LR 1,000 ML IV SCH ×2 (12:15)
[2018-11-19] MEDS ORDERED: fentaNYL 100 MCG/2 ML INJECTION (J3010) IV PRN (12:15)
[2018-11-19] MEDS ORDERED: traMADol 50 MG TAB PO PRN ×2 (12:15)
[2018-11-19] MEDS ORDERED: CelecoXIB (CeleBREX) 100 MG CAP PO ONE (12:15)
[2018-11-19] MEDS ORDERED: HYDROMORPHONE HCL 0.5 MG/ 0.5 ML SYRINGE (J1170 PER 1) IV PRN ×2 (12:30)
[2018-11-19] MEDS: METAMUCIL (PSYLLIUM) PACKET PO SCH (13:44)
--- NOTE | 2018-11-19 13:50 | IPNPDOC ---
Subjective Date Seen The patient was seen on 11/19/18. Subjective Chief Complaint/HPI Patient seen and examined at bedside. He is scheduled for surgical intervention with orthopedic surgery this morning. Objective Physical Examination General Exam: Positive: Alert, Cooperative, No Acute Distress ENT Exam: Positive: Atraumatic, Mucous membr. moist/pink Neck Exam: Negative: JVD Chest Exam: Positive: Clear to auscultation, Normal air movement Heart Exam: Positive: Rate Normal, Normal S1, Normal S2 Abdomen Exam: Positive: Soft; Negative: Tenderness Extremity Exam: Negative: Tenderness, Swelling Neuro Exam: Positive: Other (RLE with limited ROM 2/2 back Pain. However patient is able to bend the right knee and wiggle toes. Reports burning sciatic type of pain in the back of the upper leg/hamstring area. Notes some numbness across right anne/foot area) Psych Exam: Positive: Oriented x 3 Assessment /Plan Plan/VTE VTE Prophylaxis Ordered?: Yes Plan Weakness / Numbness of Right LE 2/2 herniated disc Patient denies any trauma MRI LS notable for moderate size right posterior L4-5 disc herniation with moderate thecal sac compression, partial sacralization of the L5 vertebral body. XR of the LS notable for partial sacralization of L5 vertebral body Patient without any signs or symptoms of cauda equina Cont Gabapentin, Tramadol for Pain Neurology input appreciated Orthopedic surgery on consult--patient scheduled for surgical intervention this morning. HTN Cont Losartan and HCTZ DM2 ISS DLP Atorvastatin Nicotine dependence Advised smoking cessation Nicotine patch GERD Omeprazole VS, I&O, 24H, Fishbone Vital Signs/I&O Vital Signs Date Time Temp Pulse Resp B/P (MAP) Pulse Ox O2 Delivery O2 Flow Rate FiO2 11/19/18 13:24 97.7 65 14 142/78 (99) 98 2.0 11/15/18 11:05 Room Air I&O- Last 24 Hours up to 6 AM 11/19/18 06:00 Intake Total 2700 ml Output Total 3010 ml Balance -310 ml Laboratory Data 24H LABS Laboratory Tests 2 11/18/18 16:35: Bedside Glucose (Misc Panel) 128H 11/18/18 20:26: Bedside Glucose (Misc Panel) 137H 11/19/18 05:14: Anion Gap 8, Glomerular Filtration Rate > 60.0, Blood Urea Nitrogen 16, Creatini ne 1.10, Sodium Level 138, Potassium Level 3.5, Chloride Level 104, Carbon Dioxide Level 26, Calcium Level 8.6, Magnesium Level 2.0 11/19/18 06:00: Nucleated Red Blood Cells % (auto) 0.0 CBC/BMP Laboratory Tests 11/19/18 05:14 Calcium Level 8.6 11/19/18 06:00 Red Blood Count 4.73, Mean Corpuscular Volume 96.0, Mean Corpuscular Hemoglobin 34.2 H, Mean Corpuscular Hemoglobin Concent 35.7, Red Cell Distribution Width 11.7 MOHAN VARELA MD Nov 19, 2018 13:50
[2018-11-19] MEDS: CYCLOBENZAPRINE 10 MG TAB PO PRN (20:36)
[2018-11-19] MEDS: ATORVASTATIN 20 MG TAB PO SCH (20:36)
[2018-11-19] MEDS: ACETAMINOPHEN TAB 650MG DOSE (2X325MG) PO PRN (20:37)
[2018-11-19] MEDS: traMADol 50 MG TAB PO PRN (20:37)
[2018-11-20 02:00] VITALS: BP 136/71
[2018-11-20] MEDS: ACETAMINOPHEN TAB 650MG DOSE (2X325MG) PO PRN ×2 (03:18→20:39)
[2018-11-20] MEDS: CYCLOBENZAPRINE 10 MG TAB PO PRN ×2 (03:18→17:23)
[2018-11-20] MEDS: traMADol 50 MG TAB PO PRN ×3 (03:19→17:24)
[2018-11-20 06:00] VITALS: BP 128/76; O2SAT 97
[2018-11-20 06:59] LABS: HEMATOCRIT 39.1 % (42.0-52.0); MEAN CORPUSCULAR HEMOGLOBIN 33.6 pg (27.0-33.0); MEAN CORPUSCULAR HGB CONC 35.3 g/dl (32.0-36.5); MEAN CORPUSCULAR VOLUME 95.1 fl (80.0-96.0); PLATELET COUNT, AUTOMATED 220 10^3/uL (150-450); RED BLOOD COUNT 4.11 10^6/uL (4.30-6.10); WHITE BLOOD COUNT 10.4 10^3/uL (4.0-10.0)
[2018-11-20 07:13] LABS: HEMOGLOBIN 13.8 g/dl (13.5-17.5)
--- NOTE | 2018-11-20 07:29 | CR ---
DATE OF CONSULTATION: 11/18/2018 Seen at the request of my partner, Dr. Muñoz. I reviewed his notes and findings and also saw the patient today. The patient complains of right lower extremity numbness towards the outer border and dorsum of the foot that has been going on for several days. He has had pain going on since September. He was in the emergency room in September in fact for back pain, but before that says that he did not have much back pain. Dr. Muñoz's notes reviewed. CLINICAL EXAM: Alert, cooperative. Mood and affect appropriate. Had intact motor but decreased sensation outer border of the foot on the right side. IMAGING: MRI reflects sacralization of the fifth vertebrae and a right-sided L4-5 disc herniation that is quite large. Plain films also reflected transitional anatomy. IMPRESSION: Herniated disc with right lower extremity radiculopathy above transitional anatomy. RECOMMENDATIONS: I talked to the patient about treatment options including epidural injections. The patient feels he has had cortisone shots in the past that have failed to relieve symptoms and he does not want them. We talked about surgical options and he would like surgery. The surgical considerations could be a decompression versus a decompression and fusion given the transitional anatomy. We are going to consider options with the patient and in terms of doing a decompression type surgery today that is out of the question as he has had his morning dose of Lovenox. We will likely consider surgical options for Wednesday. Will make the patient nothing by mouth after midnight.
--- NOTE | 2018-11-20 07:30 | REP ---
Clinical: Positioning for discectomy. Technique: Intraoperative cross-table lateral view lumbar spine. Findings: Probe posterior at the level of noted disc herniation on MRI dated 11/16/18 at L4/5 with partial sacralization of L5. Electronically Signed by Barry Peña MD 11/20/2018 07:22 A
[2018-11-20 07:35] LABS: BLOOD UREA NITROGEN 25 MG/DL (7-18); CARBON DIOXIDE LEVEL 27 MEQ/L (21-32); CHLORIDE LEVEL 100 MEQ/L (98-107); CREATININE FOR GFR 1.19 MG/DL (0.70-1.30); GLOMERULAR FILTRATION RATE > 60.0 (>60); GLUCOSE, FASTING 149 MG/DL (70-100); MAGNESIUM LEVEL 1.8 MG/DL (1.8-2.4); SODIUM LEVEL 135 MEQ/L (136-145)
[2018-11-20] MEDS: METAMUCIL (PSYLLIUM) PACKET PO SCH (08:10)
[2018-11-20] MEDS: HumaLOG INSULIN (NovoLOG) PER UNIT SC SCH ×4 (08:10→20:40)
[2018-11-20] MEDS: OMEPRAZOLE 20 MG CAP PO SCH (08:11)
[2018-11-20] MEDS: GABAPENTIN 300 MG CAP PO SCH ×2 (08:11→20:39)
[2018-11-20 10:00] VITALS: BP 112/62
[2018-11-20] MEDS ORDERED: CelecoXIB 400 MG CAP PO ONE (11:00)
--- NOTE | 2018-11-20 12:11 | IPNPDOC ---
Subjective Date Seen The patient was seen on 11/20/18. Subjective Chief Complaint/HPI Patient seen and examined at the bedside. He reports that the sensation in his right lower extremity is improved. Also notes that his lower back pain is well controlled at this time. Objective Physical Examination General Exam: Positive: Alert, Cooperative, No Acute Distress ENT Exam: Positive: Atraumatic, Mucous membr. moist/pink Neck Exam: Negative: JVD Chest Exam: Positive: Clear to auscultation, Normal air movement Heart Exam: Positive: Rate Normal, Normal S1, Normal S2 Abdomen Exam: Positive: Soft; Negative: Tenderness Extremity Exam: Negative: Tenderness, Swelling Neuro Exam: Positive: Strength at 5/5 X4 ext, Normal Tone, Sensation Intact Psych Exam: Positive: Oriented x 3 Assessment /Plan Plan/VTE VTE Prophylaxis Ordered?: Yes Plan Weakness / Numbness of Right LE 2/2 herniated disc s/p L4/L5 Microdiscectomy by Orthopedic Surgery on 11/19/18 Patient without any signs or symptoms of cauda equina Cont Gabapentin, Tramadol for Pain Neurology input appreciated Orthopedic surgery on board PT as per Ortho HTN Cont Losartan and HCTZ DM2 ISS DLP Atorvastatin Nicotine dependence Advised smoking cessation Nicotine patch GERD Omeprazole DVT Prophylaxis SCDs/TEDs Disposition-pending continued clinical improvement. Functional optimization by physical therapy. VS, I&O, 24H, Fishbone Vital Signs/I&O Vital Signs Date Time Temp Pulse Resp B/P (MAP) Pulse Ox O2 Delivery O2 Flow Rate FiO2 11/20/18 11:02 16 11/20/18 06:00 99.0 76 128/76 (93) 98 11/20/18 06:00 Room Air 11/19/18 13:24 2.0 I&O- Last 24 Hours up to 6 AM 11/20/18 06:00 Intake Total 1750 ml Output Total 930 ml Balance 820 ml Laboratory Data 24H LABS Laboratory Tests 2 11/19/18 16:34: Bedside Glucose (Misc Panel) 148H 11/19/18 20:22: Bedside Glucose (Misc Panel) 226H 11/20/18 06:01: Nucleated Red Blood Cells % (auto) 0.0, Anion Gap 8, Glomerular Filtration Rate > 60.0, Blood Urea Nitrogen 25#H, Creatinine 1.19, Sodium Level 135L, Potassium Level 4.0, Chloride Level 100, Carbon Dioxide Level 27, Calcium Level 9.0, Magnesium Level 1.8 11/20/18 11:39: Bedside Glucose (Misc Panel) 234H CBC/BMP Laboratory Tests 11/20/18 06:01 Red Blood Count 4.11 L, Mean Corpuscular Volume 95.1, Mean Corpuscular Hemogl obin 33.6 H, Mean Corpuscular Hemoglobin Concent 35.3, Red Cell Distribution Width 11.9, Calcium Level 9.0 MOHAN VARELA MD Nov 20, 2018 12:11
[2018-11-20 14:00] VITALS: BP 124/74
[2018-11-20] MEDS: ATORVASTATIN 20 MG TAB PO SCH (20:39)
--- NOTE | 2018-11-20 21:31 | CR ---
DATE OF CONSULTATION: 11/19/2018 At this point I had reviewed the x-rays, did reveal some transitional anatomy below his disc herniation at the L4-5 level on the right. I talked with the patient about the findings. We talked about operative intervention. The patient continued to advocate surgery over injection and therefore we elected to proceed with the surgical procedure. We completed a preoperative packet including the consent document, which involved a delisa discussion of the procedure proposed alternatives including doing nothing, and risks including, but not limited to pain, failure, nerve injury, incomplete relief, blood clots, infection, and other issues. The patient agrees to proceed.
[2018-11-20 22:00] VITALS: BP 130/87
[2018-11-21 06:00] VITALS: BP 118/67
[2018-11-21 06:14] LABS: HEMATOCRIT 38.6 % (42.0-52.0); HEMOGLOBIN 13.4 g/dl (13.5-17.5); MEAN CORPUSCULAR HEMOGLOBIN 34.4 pg (27.0-33.0); MEAN CORPUSCULAR HGB CONC 34.7 g/dl (32.0-36.5); PLATELET COUNT, AUTOMATED 202 10^3/uL (150-450); WHITE BLOOD COUNT 6.2 10^3/uL (4.0-10.0)
[2018-11-21 06:40] LABS: BLOOD UREA NITROGEN 19 MG/DL (7-18); CALCIUM LEVEL 8.5 MG/DL (8.5-10.1); CARBON DIOXIDE LEVEL 28 MEQ/L (21-32); CHLORIDE LEVEL 104 MEQ/L (98-107); CREATININE FOR GFR 1.11 MG/DL (0.70-1.30); GLOMERULAR FILTRATION RATE > 60.0 (>60); GLUCOSE, FASTING 231 MG/DL (70-100); POTASSIUM SERUM 3.7 MEQ/L (3.5-5.1); SODIUM LEVEL 138 MEQ/L (136-145)
--- NOTE | 2018-11-21 07:19 | RO ---
DATE OF PROCEDURE: 11/19/2018 PREOPERATIVE DIAGNOSIS: Right sided disc herniation at the L4-5 level producing significant lateral recess and spinal stenosis. POSTOPERATIVE DIAGNOSIS: Right sided disc herniation at the L4-5 level producing significant lateral recess and spinal stenosis. PROCEDURE PERFORMED: Right L4-5 laminotomy and microdiscectomy for removal of disk herniation. SURGEON: Dr. Wyatt Hill [employer]CE ENGINEER: ANESTHESIA: General. ESTIMATED BLOOD LOSS: Less than 30. INDICATIONS: Right lower extremity radicular discomfort. The patient has elected for operative intervention. Consent was completed including a discussion of risks and benefits. The patient elected to proceed. OPERATIVE COURSE: Identified in holding area, site and side verified, brought to the operating room, once anesthesia was administered, positioned in the usual fashion on the Anshu frame, knees slightly flexed. Once I and the investigator narcotics were comfortable with positioning, we accomplished a time out. The line of the incision was infiltrated with 0.25% Marcaine with epinephrine. Incision was approximately three fingerbreadths long. Next, I stood on the patient's right side and made the incision. Developed down through subcuticular tissues to the posterior lumbar fascia. Posterior lumbar fascia was sharply reflected off of the spinous processes of 4 and 5. Dissection continued down the L4 spinous process exposing the L4-5 interspace and pulling the soft tissue over the facet complex. The Shadow Line retractor was installed. Next, once this was accomplished, the operating microscope was brought in, sterilely draped for the remainder of the procedure. Posterior lamina was removed. Cross table lateral x-ray was taken against a Gomes Abad placed within the lamina. It verified our level. Next, once this was accomplished, we removed the posterior lamina using [place]ells as well as the high-speed drill extending through the bare area of 4, protecting the facet complex. Probably about 10-15% of the facet complex was involved in the laminotomy extending inferiorly through the bare area of 5, elevating the ligamentum flavum and exposing the thecal sac. Next, Gomes Abad was utilized to sweep the traversing nerve root, presumably the L5 nerve root medially, exposing disc. The disc seemed to be subligamentous and extruded and we removed it using a Gimenez pituitary. I then was able to sweep the ligament medially using suction Samantha and removed some additional material from within the disc space using the Gimenez pituitaries. The nerve was significantly decompressed. We probed the neural foramina. We irrigated and then closed the wound with interrupted stitch, deep as well as superficial, followed by application of a Prineo dressing. The patient was able to be log-rolled to the hospital bed, extubated and moved to recovery in good condition. For further details, please refer to the medical record.
[2018-11-21] MEDS: HumaLOG INSULIN (NovoLOG) PER UNIT SC SCH ×2 (08:17→12:03)
[2018-11-21] MEDS: GABAPENTIN 300 MG CAP PO SCH (08:18)
[2018-11-21] MEDS: OMEPRAZOLE 20 MG CAP PO SCH (08:18)
[2018-11-21] MEDS: METAMUCIL (PSYLLIUM) PACKET PO SCH ×2 (08:18→08:24)
[2018-11-21 08:22] VITALS: BP 132/82
[2018-11-21] MEDS: LOSARTAN 50 MG TAB PO SCH (08:22)
[2018-11-21] MEDS: hydroCHLOROthiazide 25 MG TAB PO SCH (08:22)
[2018-11-21] MEDS ORDERED: TRAM50TA2 PO (08:46)
[2018-11-21] MEDS ORDERED: CELE1CAP4 PO (08:46)
[2018-11-21] MEDS: traMADol 50 MG TAB PO PRN (09:15)
--- NOTE | 2018-11-21 15:12 | DS.PDOC ---
Discharge Summary General Date of Admission Nov 16, 2018 at 13:30 Date of Discharge 11/21/18 Discharge Summary PROCEDURES PERFORMED DURING STAY: s/p L4/L5 Microdiscectomy by Orthopedic Surgery on 11/19/18 ADMITTING/DISCHARGE DIAGNOSES: Weakness/numbness of right lower extremity secondary to herniated disc Hypertension Diabetes mellitus Dyslipidemia Nicotine dependence COMPLICATIONS/CHIEF COMPLAINT: Paresthesia Of Rt Upper And Lower Extremity. HISTORY OF PRESENT ILLNESS: . 27-year-old male with past medical history of hypertension, dyslipidemia, diabetes, nicotine dependence presented from the local correctional facility with the chief complaint of lower back pain, and right lower extremity weakn ess/numbness and tingling. The patient does endorse having chronic back pain in the past. He denies any trauma in the past or recently. The patient also denied any genital numbness/tingling, or fecal/urinary incontinence. A consult was placed orthopedic service, and the patient was admitted to the hospitalist service for further evaluation and management. Weakness / Numbness of Right LE 2/2 herniated disc Imaging during hospitalization noted below s/p L4/L5 Microdiscectomy by Orthopedic Surgery on 11/19/18 Patient without any signs or symptoms of cauda equina Cont Tramadol for Pain Patient cleared by physical therapy and orthopedic surgery Follow-up with Orthopedic surgery as an outpatient HTN Cont Losartan and HCTZ DM2 ISS DLP Atorvastatin Nicotine dependence Advised smoking cessation Nicotine patch GERD Omeprazole DISCHARGE MEDICATIONS: Please see below. ALLERGIES: Please see below. PHYSICAL EXAMINATION ON DISCHARGE: VITAL SIGNS: Please see below. General Exam: Positive: Alert, Cooperative, No Acute Distress ENT Exam: Positive: Atraumatic, Mucous membr. moist/pink Neck Exam: Negative: JVD Chest Exam: Positive: Clear to auscultation, Normal air movement Heart Exam: Positive: Rate Normal, Normal S1, Normal S2 Abdomen Exam: Positive: Soft; Negative: Tenderness Extremity Exam: Negative: Tenderness, Swelling Neuro Exam: Positive: Strength at 5/5 X4 ext, Normal Tone, Sensation Intact Psych Exam: Positive: Oriented x 3 LABORATORY DATA: Please see below. IMAGING: MRI brain without contrast: History: CVA . Comparison study: Comparison is made with today's brain CT study November 15, 2018. Technique: Axial and sagittal imaging planes are utilized for T1 and T2- weighted scans. Sequences include spin-echo, fast spin echo, FLAIR, and diffusion weighted sequences. MRI findings: There is a small dural calcification visible in the right parietal region corresponding to the CT. This measures 1.1 cm in greatest diameter. Is attached to the inner table and is compatible with a small osteoma. Craniocervical junction and upper cervical cord are normal in appearance. There is no MR evidence of significant paranasal sinus disease. No intraorbital abnormality is seen. The lateral, third, and fourth ventricles are normal in size and position. Orellana-white differentiation pattern is intact above and below the tentorium. There is no evidence of intracranial hemorrhage. No mass, infarction, extra-axial fluid collection or midline shift is seen. No abnormal white matter lesion is seen. 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 Otherwise negative noncontrast brain MRI study. MRI cervical spine without contrast: History: Neck pain. No comparison cervical spine imaging. Technique: Sagittal and axial T1 and T2-weighted scans are acquired in the usual fashion with and without fat saturation. Sequences include spin echo, turbo spin-echo, and STIR imaging sequences. MRI findings: There is straightening and slight reversal of the normal cervical lordosis. Cortical and medullary bone signal intensity are normal. Vertebral body heights are preserved. Alignment is otherwise normal. Craniocervical junction is unremarkable. The cervical cord is normal in coarse, caliber and signal intensity on T1 and T2-weighted scans. There is mild central disc bulging at C2-3. No other finding at this level. At C3-4, there is a left posterior focal disc protrusion indenting the ventral margin of the thecal sac. On axial images this appears to contact the ventral margin of the cord. There is no evidence of cord compression. No neural foraminal compromise is seen. At C4-5, there is mild broad-based disc bulging. There is uncovertebral spurring on the right encroaching on the right neural foramen. At C5-6, there is disc space narrowing and posterior bulging. Minimal uncovertebral spurring is present bilaterally at C5-6. At C6-7 and C7-T1, there is no disc abnormality. Canal size is borderline at C4-5 and C5-6. AP diameter of the thecal sac in the midline at these levels is 10 mm. Impression: Degenerative disc disease noted with a left posterior disc protrusion at C3-4, right-sided uncovertebral spurring at C4-5, mild bilateral uncovertebral spurring at C5-6 with diffuse disc bulging. Borderline canal size at C4-5 and C5-6. MRI LUMBAR SPINE WITHOUT CONTRAST: HISTORY: Back pain. Left calf numbness. No known injury. TECHNIQUE: Sagittal and axial T1- and T2-weighted scans are acquired in the usual fashion with and without fat saturation. Sequences include spin echo, turbo spin echo, and STIR imaging sequences. MRI FINDINGS: There is partial sacralization of the L5 vertebral body. Vertebral body heights are preserved. Alignment is normal. Cortical and medullary bone signal intensity are normal. There is a Schmorl's node in the superior endplate of the L5 vertebral body on the right. There is degenerative disc disease at L4-5. There is a large right posterior focal disc protrusion producing moderate thecal sac compression and right fifth lumbar root compression. There is diffuse moderate bulging of the remainder of the disc margin. The left neural foramen shows a encroachment as well. There is no evidence of spondylolysis or spondylolisthesis. Mild facet hypertrophy is present. Thecal sac measures 6 mm AP dimension in the midline. At L5-S1, there is no disc abnormality. At L3-4, L2-3, and L1-L2, there is no significant disc abnormality. No central canal stenosis or neural foraminal narrowing is seen. Conus medullaris is normal in position and appearance at the T12-L1. IMPRESSION: Moderate sized right posterior L4-5 disc herniation with a moderate thecal sac compression. Bilateral neural foraminal narrowing at L4-5. Facet hypertrophy is present of L4-5 as well. There is partial sacralization of the L5 vertebral body. Clinical: Lumbar pain Technique: AP, lateral, bilateral oblique, and coned-down views. Findings: Alignment and lordosis is maintained. There appears to be partial sacralization of the L5 vertebral body with associated loss of disc space. The remaining vertebral bodies including transverse process and spinous processes are intact and normal. There is no evidence for acute fracture / compression injury or subluxation. No evidence for spondylolysis or spondylolisthesis. Impression: Partial sacralization of the L5 vertebral body. Otherwise normal appearing lumbar series. Clinical: Positioning for discectomy. Technique: Intraoperative cross-table lateral view lumbar spine. Findings: Probe posterior at the level of noted disc herniation on MRI dated 11/16/18 at L4/5 with partial sacralization of L5. PROGNOSIS: Fair ACTIVITY: As tolerated. DIET: Carb consistent diet DISCHARGE PLAN: DISPOSITION: 70 Xfer Other. DISCHARGE INSTRUCTIONS: Follow-up with primary care physician within 7 days. Follow-up with orthopedic surgery as scheduled. DISCHARGE CONDITION: Stable. TIME SPENT ON DISCHARGE: Greater than 30 minutes. Vital Signs/I&Os Vital Signs Date Time Temp Pulse Resp B/P (MAP) Pulse Ox O2 Delivery O2 Flow Rate FiO2 11/21/18 09:45 18 11/21/18 08:22 132/82 11/21/18 06:00 98.7 73 93 11/20/18 06:00 Room Air 11/19/18 13:24 2.0 I&O- Last 24 Hours up to 6 AM 11/21/18 06:00 Intake Total 2710 ml Output Total 600 ml Balance 2110 ml Laboratory Data Labs 24H Laboratory Tests 2 11/20/18 16:26: Bedside Glucose (Misc Panel) 111H 11/20/18 20:40: Bedside Glucose (Misc Panel) 187H 11/21/18 05:50: Nucleated Red Blood Cells % (auto) 0.0, Anion Gap 6L, Glomerular Filtration Rate > 60.0, Blood Urea Nitrogen 19H, Creatinine 1.11, Sodium Level 138, Potassium Level 3.7, Chloride Level 104, Carbon Dioxide Level 28, Calcium Level 8.5, Magnesium Level 2.0 11/21/18 11:21: Bedside Glucose (Misc Panel) 208H CBC/BMP Laboratory Tests 11/21/18 05:50 Red Blood Count 3.90 L, Mean Corpuscular Volume 99.0 H, Mean Corpuscular Hemoglobin 34.4 H, Mean Corpuscular Hemoglobin Concent 34.7, Red Cell Distribution Width 11.9, Calcium Level 8.5 FSBS Laboratory Tests Test 11/20/18 16:26 11/20/18 20:40 11/21/18 11:21 Range/Units Bedside Glucose (Misc Panel) 111 187 208 70-105 MG/DL Discharge Medications Scheduled Aspirin (Aspir 81) 81 Mg Tablet.dr, 81 MG PO DAILY, (Reported) Atorvastatin Calcium (Atorvastatin Calcium) 40 Mg Tablet, 40 MG PO QHS, (Reported) Celecoxib (Celebrex) 200 Mg Capsule, 1 CAP PO BID Hydrochlorothiazide (Hydrochlorothiazide) 25 Mg Tablet, 25 MG PO DAILY, (Reported) Losartan Potassium (Losartan Potassium) 100 Mg Tablet, 100 MG PO DAILY, (Reported) Metformin HCl (Metformin HCl) 500 Mg Tablet, 500 MG PO BID, (Reported) Omeprazole (Omeprazole) 40 Mg Capsule.dr, 40 MG PO DAILY, (Reported) Scheduled PRN Tramadol HCl (Tramadol HCl) 50 Mg Tablet, 1-2 TAB PO Q4H PRN for PAIN Allergies Coded Allergies: lisinopril (Verified Allergy, Severe, lips swelling, 11/15/18) MOHAN VARELA MD Nov 21, 2018 15:11
== END 2018-11-21 13:30 | DRG 310 ==
LOC: EDSEX 10:42 → M ED 10:42 → M ED INP 13:51 → M MSPAV 15:19 → OBSVTOIN 11-16 13:30 → M MS5PR 11-19 12:25
PROVIDERS: ADMIT Internal Medicine; ATTEND Internal Medicine
PROC: 0SB20ZZ Excision of Lumbar Vertebral Disc, Open Approach (ICD-10-PCS; principal; 2018-11-19 08:00)
DX: M51.26 Other intervertebral disc displacement, lumbar region (principal); Z79.82 Long term (current) use of aspirin; Z79.899 Other long term (current) drug therapy; I10 Essential (primary) hypertension; E78.5 Hyperlipidemia, unspecified; E11.9 Type 2 diabetes mellitus without complications; F17.200 Nicotine dependence, unspecified, uncomplicated; K21.9 Gastro-esophageal reflux disease without esophagitis; Z88.8 Allergy status to other drugs, medicaments and biological substances

== ENCOUNTER → 2019-02-15 | Outpatient (REF) | payer MEDICAID, OTHER ==
[~2019-02-15] MED LIST: ASPI81TA85 PO; ATOR40TA75 PO; CELE1CAP4 PO; HYDR12.55 PO; HYDR25TAB PO; IBUP-1114 PO; LOSA100T50 PO; METF-839 PO; OMEP40CA2 PO; TRAM50TA2 PO
[2019-02-15 15:31] LABS: EOS # 0.1 10^3/uL (0.0-0.5); EOS % 2.5 % (0.0-3.0); HEMOGLOBIN 16.2 g/dl (13.5-17.5); LYMPH # 2.2 10^3/uL (1.5-5.0); LYMPH % 54.8 % (24.0-44.0); MEAN CORPUSCULAR HEMOGLOBIN 34.3 pg (27.0-33.0); MEAN CORPUSCULAR HGB CONC 35.2 g/dl (32.0-36.5); MEAN CORPUSCULAR VOLUME 97.5 fl (80.0-96.0); MONO # 0.4 10^3/uL (0.0-0.8); MONO % 9.6 % (0.0-5.0); NEUTROPHILS # 1.3 10^3/uL (1.5-8.5); NEUTROPHILS % 32.1 % (36.0-66.0); PLATELET COUNT, AUTOMATED 262 10^3/uL (150-450); RED BLOOD COUNT 4.72 10^6/uL (4.30-6.10); WHITE BLOOD COUNT 4.1 10^3/uL (4.0-10.0)
== END ==
LOC: EDBD → M LAB REF 13:27
PROVIDERS: ATTEND Surgery
DX: R10.9 Unspecified abdominal pain (principal)

== ENCOUNTER 2019-02-16 09:24 | Emergency (ER) | payer MEDICAID, OTHER ==
[~2019-02-16] VITALS: Ht 177.8 cm; Wt 100.7 kg
[~2019-02-16 09:24] MED LIST changes: -IBUP-1114 PO
[2019-02-16] MEDS ORDERED: NS 1,000 ML IV ONE (10:00)
[2019-02-16] MEDS ORDERED: ISOVUE-370 76% 100ML VIAL (Q9967) As Ordered ONE (10:25)
[2019-02-16 10:35] LABS: BASO % 0.5 % (0.0-1.0); EOS # 0.1 10^3/uL (0.0-0.5); EOS % 3.1 % (0.0-3.0); HEMATOCRIT 45.6 % (42.0-52.0); HEMOGLOBIN 16.4 g/dl (13.5-17.5); MEAN CORPUSCULAR VOLUME 94.6 fl (80.0-96.0); MONO # 0.4 10^3/uL (0.0-0.8); MONO % 9.1 % (0.0-5.0); NEUTROPHILS # 1.4 10^3/uL (1.5-8.5); PLATELET COUNT, AUTOMATED 265 10^3/uL (150-450); RED BLOOD COUNT 4.82 10^6/uL (4.30-6.10); WHITE BLOOD COUNT 3.8 10^3/uL (4.0-10.0)
[2019-02-16 10:52] LABS: ALBUMIN 4.2 GM/DL (3.2-5.2); BILIRUBIN,DIRECT 0.2 MG/DL (0.0-0.2); BILIRUBIN,TOTAL 0.7 MG/DL (0.2-1.0); TOTAL PROTEIN 7.6 GM/DL (6.4-8.2)
--- NOTE | 2019-02-16 11:27 | REP ---
CT ABDOMEN AND PELVIS WITH IV CONTRAST: TECHNIQUE: Axial contrast enhanced images from the lung bases to the pubic symphysis using 100 mL Isovue 370 intravenous contrast material with multiplanar reformations. Visualized lungs bases demonstrate no infiltrate. Two hypodensities in the superior liver, one in the right lobe, and one in the left, probably represent small cysts or hemangiomas, the largest of the two measures approximately 1.2 cm in diameter. Gallbladder is grossly unremarkable. There is no biliary dilatation. Spleen, adrenals, pancreas, and kidneys are normal in appearance. There is no hydronephrosis. There is no abdominal aortic aneurysm. There is no adenopathy. There is no free air or free fluid. No bowel wall thickening is seen. The appendix is normal. There is a small umbilical hernia containing fat. No pelvic mass or bladder abnormality is seen. IMPRESSION: No acute abnormalities. No evidence of appendicitis. Two small hypodense lesions in the liver probably represent small cysts or hemangiomas. There is a small umbilical hernia containing fat. Electronically Signed by Darwin Orellana MD 02/16/2019 01:35 P
[2019-02-16] MEDS ORDERED: KETOROLAC 30 MG/ML VIAL (J1885) IV ONE (12:00)
[2019-02-16] MEDS ORDERED: IBUP-1114 PO (12:12)
[2019-02-16 12:40] VITALS: BP 133/68
== END 2019-02-16 12:50 | disposition home or self-care (01) ==
LOC: EDBD → M ED 09:24
DX: R10.31 Right lower quadrant pain (principal); E11.9 Type 2 diabetes mellitus without complications; I10 Essential (primary) hypertension; E78.5 Hyperlipidemia, unspecified; K21.9 Gastro-esophageal reflux disease without esophagitis; F17.210 Nicotine dependence, cigarettes, uncomplicated; Z79.4 Long term (current) use of insulin; Z79.82 Long term (current) use of aspirin; Z79.899 Other long term (current) drug therapy
CPT/HCPCS: 74177; 80047; 80076; 81001; 82150; 83605; 83690; 85025; 93041; 96365; 96366; 96375; 99284; J1885; Q9967